=== PATIENT | born 1965 | race Caucasian/White ===

== ENCOUNTER → 2023-11-04 09:01 | Outpatient (BNVA) | payer MEDICARE, SELFPAY | PROVIDERS: PCP Nurse Practitioner; Referring Provider Nurse Practitioner; Visit Provider Surgery | DX: Z12.11 Encounter for screening for malignant neoplasm of colon (principal) | CPT/HCPCS: 99024; 99203 ==

== ENCOUNTER 2024-01-29 09:07 | Day surgery (SDC) | payer MEDICARE, SELFPAY ==
[2024-01-29 09:38] VITALS: BP 136/95; PULSE 91; RESP 18; TEMP 36.6; O2SAT 93; BMI 35.6
[2024-01-29] MEDS: sodium chloride 0.9% 1,000 ML 30 ML IV (09:45)
--- NOTE | 2024-01-29 09:58 | W.PM.OPSFHP ---
Same Day Surgery H&P Indication for Procedure/HPI DATE OF PROCEDURE: January 29, 2024 CHIEF COMPLAINT/INDICATIONFOR SURGICAL PROCEDURE: need for screening colonoscopy PREOP DIAGNOSIS: need for screening colonoscopy PLANNED PROCEDURE: Operation Date: 01/29/24 10:35 [place] Procedures p 80927 colon G0105 screen colon H risk Z12.11(Not Applicable) - Bryon Gonzales MD Medications/Allergies* Home Medications Medication Instructions Recorded Confirmed Type atorvastatin 40 mg tablet 40 mg PO DAILY 11/04/23 01/29/24 History lisinopril 5 mg tablet 5 mg PO DAILY 11/04/23 01/29/24 History Allergies/Adverse Reactions Allergy/AdvReac Type Severity Reaction Status Date / Time No Known Allergies Allergy Unverified 01/29/24 09:41 Current Medications: Generic Name Dose Route Start Last Admin Trade Name Freq PRN Reason Stop Dose Admin Sodium Chloride 1,000 mls @ 30 mls/hr 01/29/24 07:15 01/29/24 09:45 Sodium Chloride 0.9% IV 01/30/24 07:14 30 mls/hr .Q24H EDIE Administration Pertinent History/Comorbid Conditions* Family History (Updated 11/04/23 @ 10:03 by Rhona Avalos) Family/Other Grandfather H/O colectomy Father Colon cancer Family/Other Grandfather Pertinent Exam Findings alert, oriented x 3, clear to auscultation bilaterally, regular rate & rhythm and operative site marked Recommendations Surgery/Procedure today Coding Level of Care Code Acute Code for Chg Fwd
[2024-01-29 11:09] VITALS: BP 112/72; PULSE 109; RESP 20; TEMP 36.8; O2SAT 91
--- NOTE | 2024-01-29 11:17 | P.ANESASSM_ITS ---
Pre-Anesthetic Assessment Height/Weight: Height 1.85 m Weight 122.47 kg Temp Pulse Resp BP Pulse Ox O2 Del Method 97.8 F 91 18 136/95 93 Room Air 01/29/24 09:38 01/29/24 09:38 01/29/24 09:38 01/29/24 09:38 01/29/24 09:38 01/29/24 09:38 Preop Diagnosis: need for screening colonoscopy Operation Date: 01/29/24 10:35 Proposed Procedures p [id number] colon G0105 screen colon H risk Z12.11(Not Applicable) - Bryon Gonzales MD Familial anesthetic complications: None Was Beta Farhan taken within 24 hours: N/A Was Clonidine taken within 24 hours: N/A Last intake: Intake Last Liquid Date 01/28/24 Last Liquid Time 20:00 Last Solid Date 01/27/24 Last Solid Time 18:00 Social Alcohol (2 shots/day) and No tobacco Exam alert, oriented x 3 and regular rate & rhythm Airway Mallampati: Class III Dentition: full History/ROS No significant history except as noted Pulmonary None reported CV/HEM Hypertension None reported Hepatic None reported GI None reported Metabolic Morbid Obesity [facility] [place] None reported Neuropsych None reported Anesthetic Plan ASA status: 3 Anesthesia: Anesthesia Evaluation and MAC Risk of > 500 ml blood loss (7ml/kg in children): No Medications/Allergies Home Medications Medication Instructions Recorded Confirmed Last Taken Type atorvastatin 40 mg tablet 40 mg PO DAILY 11/04/23 01/29/24 01/28/24 History lisinopril 5 mg tablet 5 mg PO DAILY 11/04/23 01/29/24 01/25/24 History Allergies Allergy/AdvReac Type Severity Reaction Status Date / Time No Known Allergies Allergy Unverified 01/29/24 09:41 Current Medications Generic Name Dose Route Start Last Admin Trade Name Freq PRN Reason Stop Dose Admin Sodium Chloride 1,000 mls @ 30 mls/hr 01/29/24 07:15 01/29/24 09:45 Sodium Chloride 0.9% IV 01/30/24 07:14 30 mls/hr .Q24H EDIE Administration PFSH Anesthesia Family History (Updated 11/04/23 @ 10:03 by Rhona Avalos) Father H/O colectomy Family/Other Colon cancer Grandfather Colon cancer Data Anesthesia Cardiac Studies: No Data to Display
[2024-01-29 11:26] VITALS: BP 113/84; PULSE 97; RESP 18; O2SAT 94
== END 2024-01-29 11:50 | disposition home or self-care (01) ==
PROVIDERS: PCP Nurse Practitioner; Visit Provider Surgery
PROC: 0DJD8ZZ Inspection of Lower Intestinal Tract, Via Natural or Artificial Opening Endoscopic (ICD-10-PCS; CPT 45378; principal; 2024-01-29 10:35)
DX: Z12.11 Encounter for screening for malignant neoplasm of colon (principal); K55.20 Angiodysplasia of colon without hemorrhage; K57.30 Diverticulosis of large intestine without perforation or abscess without bleeding; K64.4 Residual hemorrhoidal skin tags
CPT/HCPCS: 45378; J2704; J7030